=== PATIENT | male | born 1955 | race Caucasian/White ===

== ENCOUNTER 2020-10-19 15:19 | Inpatient (IN) | payer OTHER ==
[~2020-10-19] VITALS: Ht 180.3 cm; Wt 70.0 kg
[2020-10-19 20:46] LABS: WHITE BLOOD COUNT 29.9 K/UL (4.5-11.0)
[2020-10-19 20:50] LABS: HEMOGLOBIN 5.6 gm/dl (14.0-17.5)
[2020-10-20 08:10] LABS: RED BLOOD COUNT 2.31 M/UL (4.20-5.50); WHITE BLOOD COUNT 18.4 K/UL (4.5-11.0)
[2020-10-20 08:12] LABS: HEMOGLOBIN 6.4 gm/dl (14.0-17.5)
[2020-10-20 08:26] LABS: BUN/CREATININE RATIO 27 (0-10)
[2020-10-20] MEDS ORDERED: ABIRATERONE AC250 MG PO (09:05)
[2020-10-20] MEDS ORDERED: ONDANSETRON HCL8 MG PO (09:08)
[2020-10-20] MEDS ORDERED: PREDNISONE5 MG PO (09:08)
[2020-10-20] MEDS ORDERED: COMPAZINE 10MG10 MG GT (09:11)
[2020-10-20] MEDS ORDERED: DRONABINOL2.5 MG PO (09:13)
[2020-10-20] MEDS ORDERED: FINASTERIDE5 MG PO (09:14)
[2020-10-20] MEDS ORDERED: AMIODARONE HCL200 MG PO (09:15)
[2020-10-20] MEDS ORDERED: BICALUTAMIDE50 MG PO (09:18)
[2020-10-20] MEDS ORDERED: FLOMAX 0.4 MG0.4 MG PO (09:19)
[2020-10-20] MEDS ORDERED: MORPHINE SULFAT15 M2 PO (09:21)
[2020-10-20] MEDS ORDERED: OXYCODONE HCL5 MG PO (09:24)
[2020-10-20] MEDS ORDERED: STIMULANT LAXA1 EACH PO (09:27)
[2020-10-20 16:23] LABS: HEMOGLOBIN 7.3 gm/dl (14.0-17.5); RED BLOOD COUNT 2.48 M/UL (4.20-5.50); WHITE BLOOD COUNT 15.7 K/UL (4.5-11.0)
[2020-10-21 02:08] LABS: RED BLOOD COUNT 2.31 M/UL (4.20-5.50)
[2020-10-21 02:09] LABS: WHITE BLOOD COUNT 10.9 K/UL (4.5-11.0)
[2020-10-21 02:10] LABS: HEMOGLOBIN 6.7 gm/dl (14.0-17.5)
[2020-10-21 02:28] LABS: BUN/CREATININE RATIO 29 (0-10)
[2020-10-21 14:12] LABS: HEMOGLOBIN 7.7 gm/dl (14.0-17.5)
[2020-10-22 02:51] LABS: HEMOGLOBIN 7.3 gm/dl (14.0-17.5); WHITE BLOOD COUNT 8.4 K/UL (4.5-11.0)
[2020-10-22 02:58] LABS: RED BLOOD COUNT 2.59 M/UL (4.20-5.50)
[2020-10-22 03:38] LABS: BUN/CREATININE RATIO 23 (0-10)
[2020-10-22 15:46] LABS: HEMOGLOBIN 9.1 gm/dl (14.0-17.5)
[2020-10-23 02:49] LABS: HEMOGLOBIN 7.7 gm/dl (14.0-17.5); RED BLOOD COUNT 2.77 M/UL (4.20-5.50); WHITE BLOOD COUNT 6.5 K/UL (4.5-11.0)
[2020-10-23 03:24] LABS: BUN/CREATININE RATIO 20 (0-10)
[2020-10-24 03:36] LABS: HEMOGLOBIN 8.5 gm/dl (14.0-17.5); WHITE BLOOD COUNT 5.5 K/UL (4.5-11.0)
[2020-10-24 03:58] LABS: BUN/CREATININE RATIO 15 (0-10)
[2020-10-24 14:14] LABS: HAPTOGLOBIN 30 mg/dL (32-363)
[2020-10-24 16:14] LABS: HEMATOCRIT 24.2 % (37.5-51.0)
[2020-10-25 03:16] LABS: HEMOGLOBIN 8.5 gm/dl (14.0-17.5); RED BLOOD COUNT 3.04 M/UL (4.20-5.50); WHITE BLOOD COUNT 5.9 K/UL (4.5-11.0)
[2020-10-25 03:30] LABS: BUN/CREATININE RATIO 20 (0-10)
[2020-10-25] MEDS ORDERED: FOLIC ACID 1 MG1 MG PO (09:30)
[2020-10-25] MEDS ORDERED: B-1100 MG PO (09:30)
[2020-10-25] MEDS ORDERED: FERROUS SULFAT325 M2 PO (09:30)
== END 2020-10-25 14:42 | disposition home or self-care (01) | DRG 378 ==
LOC: PROG CARE 15:27
PROVIDERS: Internal Medicine Hematology & Oncology; ADMIT Internal Medicine
PROC: 30233N1 Transfusion of Nonautologous Red Blood Cells into Peripheral Vein, Percutaneous Approach (ICD-10-PCS; principal; 2020-10-19)
PROC: 0DJ08ZZ Inspection of Upper Intestinal Tract, Via Natural or Artificial Opening Endoscopic (ICD-10-PCS; 2020-10-21)
PROC: 0DJD8ZZ Inspection of Lower Intestinal Tract, Via Natural or Artificial Opening Endoscopic (ICD-10-PCS; 2020-10-22)
PROC: 0DJD8ZZ Inspection of Lower Intestinal Tract, Via Natural or Artificial Opening Endoscopic (ICD-10-PCS; 2020-10-23)
DX: K92.2 Gastrointestinal hemorrhage, unspecified (principal); D68.32 Hemorrhagic disorder due to extrinsic circulating anticoagulants; D62 Acute posthemorrhagic anemia; C85.10 Unspecified B-cell lymphoma, unspecified site; C79.82 Secondary malignant neoplasm of genital organs; C79.51 Secondary malignant neoplasm of bone; K57.32 Diverticulitis of large intestine without perforation or abscess without bleeding; Z20.822 Contact with and (suspected) exposure to COVID-19; J44.9 Chronic obstructive pulmonary disease, unspecified; I25.10 Atherosclerotic heart disease of native coronary artery without angina pectoris; E78.5 Hyperlipidemia, unspecified; E83.39 Other disorders of phosphorus metabolism; I48.0 Paroxysmal atrial fibrillation; T45.515A Adverse effect of anticoagulants, initial encounter; I11.0 Hypertensive heart disease with heart failure; K64.8 Other hemorrhoids; I25.5 Ischemic cardiomyopathy; I50.9 Heart failure, unspecified; Z95.810 Presence of automatic (implantable) cardiac defibrillator; Z79.01 Long term (current) use of anticoagulants; Z79.82 Long term (current) use of aspirin; Z95.5 Presence of coronary angioplasty implant and graft; Z87.891 Personal history of nicotine dependence; Z80.9 Family history of malignant neoplasm, unspecified
CPT/HCPCS: 36415; 36430; 80048; 82272; 82607; 82668; 82728; 82747; 83010; 83540; 83550; 83615; 83735; 83921; 84100; 85014; 85018; 85025; 85027; 85045; 86850; 86900; 86901; 86920; 93005; C9113; J0610; J0692; J2250; J2704; J3010; J7040; J7050; P9016